=== PATIENT | female | born 1995 | race Hispanic/Latino ===

== ENCOUNTER 2021-03-24 12:58 | Emergency (ER) | payer OTHER ==
[~2021-03-24] VITALS: Ht 170.2 cm; Wt 111.1 kg
[2021-03-24 12:59] VITALS: BP 181/99
[2021-03-24] MEDS ORDERED: TETANUS/DIPHTHERIA TOXOID [ADULT] 0.5 ML VIAL IM SCH (13:30)
== END 2021-03-24 14:14 | disposition home or self-care (01) ==
LOC: EDH 12:58
DX: S61.012A Laceration without foreign body of left thumb without damage to nail, initial encounter (principal); X58.XXXA Exposure to other specified factors, initial encounter; Y93.89 Activity, other specified; Y92.89 Other specified places as the place of occurrence of the external cause; Y99.8 Other external cause status
CPT/HCPCS: 12001; 90471; 90714

== ENCOUNTER 2021-12-11 10:43 | Emergency (ER) | payer OTHER ==
[~2021-12-11] VITALS: Ht 160 cm; Wt 104.3 kg
[2021-12-11] MEDS ORDERED: ACET-66 PO (11:26)
[2021-12-11 13:10] VITALS: BP 126/67
== END 2021-12-11 13:09 | disposition home or self-care (01) ==
LOC: EDH 10:43
DX: U07.1 COVID-19 (principal); Z88.0 Allergy status to penicillin
CPT/HCPCS: 87635; 99283; C9803